=== PATIENT | male | born 1995 | race Caucasian/White ===

== ENCOUNTER 2020-12-15 23:38 | Emergency (ER) | payer SELFPAY ==
[~2020-12-15] VITALS: Ht 172.7 cm; Wt 68.0 kg
[2020-12-16] MEDS ORDERED: ACETAMINOPHEN 325MG TABLET PO ONE (01:45)
[2020-12-16] MEDS ORDERED: ACET-2708 MT (03:27)
[2020-12-16 03:30] VITALS: BP 126/64
== END 2020-12-16 03:30 | disposition left against medical advice (07) ==
LOC: ER 23:38
DX: S00.01XA Abrasion of scalp, initial encounter (principal); M54.2 Cervicalgia; V43.62XA Car passenger injured in collision with other type car in traffic accident, initial encounter; Y93.89 Activity, other specified; Y92.488 Other paved roadways as the place of occurrence of the external cause
CPT/HCPCS: 99283